=== PATIENT | female | born 1980 | race Caucasian/White ===

== ENCOUNTER → 2016-06-01 | Outpatient (CLI) | payer BC | LOC: MOB LAB 15:11 | PROVIDERS: ATTEND Obstetrics & Gynecology | DX: Z85.43 Personal history of malignant neoplasm of ovary (principal) | CPT/HCPCS: 36415; 86304 ==

== ENCOUNTER → 2016-11-26 | Outpatient (CLI) | payer BC ==
--- NOTE | 2016-11-26 21:34 | DI ---
CT ABDOMEN SCAN WITHOUT AND WITH IV CONTRAST, 11/26/2016 7:52 AM : Clinical History: History of ovarian cancer. Previous Exam: 07/23/2015. Scans are performed from the lower lung bases through the liver and kidneys without and with IV contr ast. Sagittal and coronal images are generated. 75 ml of Isovue 300 was injected IV. No oral or recta l contrast was ordered. The lung bases are clear. In the posterior and inferior aspect of the right lobe of the liver, there is a 10 mm low-density lesion that was present on the previous study and has not changed. It most lik neida represents a benign cyst. The remainder of the liver is normal. The gallbladder is grossly normal . There is no abnormality of the spleen, pancreas, and adrenal glands. Both kidneys are normal in siz e, shape, position and contour. There is no hydronephrosis or hydroureter. No renal or ureteral calcu li are present. There are no abnormal retrocrural or periaortic nodes. There is no ascites. There is no evidence of mesenteric or peritoneal studding with metastatic disease. READING: Normal CT abdomen scan without and with IV contrast. CT PELVIS SCAN WITHOUT AND WITH IV CONTRAST, 11/26/2016 7:52 AM: Clinical History: See above. Previous Exam: 07/23/2015. Scans are performed from just superior to the umbilicus to the symphysis pubis without and with IV co ntrast. This is the same bolus of IV contrast used for the CT scans of the abdomen. Scans through the lower abdomen and pelvis show no masses or abnormal fluid collections. There is no adenopathy. The appendix is not visualized with certainty but there is no inflammatory mass either in the cecal tip or in the right lower quadrant. The small bowel, terminal ileum, and ileocecal valve a re intact. The colon is also normal. There are no hernias. The patient is status post hysterectomy a nd bilateral salpingo-oophorectomy. READING: Normal CT scan of the pelvis.
== END ==
LOC: CT 07:48
PROVIDERS: ATTEND Obstetrics & Gynecology
DX: Z85.43 Personal history of malignant neoplasm of ovary (principal)
CPT/HCPCS: 74178